=== PATIENT | male | born 2005 | race African-American/Black ===

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

== ENCOUNTER 2024-06-13 07:33 | Emergency (ER) | payer OTHER ==
[2024-06-13 07:54] VITALS: BP 111/82; PULSE 79; RESP 20; TEMP 97.6; BMI 23.8
== END 2024-06-13 08:20 | disposition home or self-care (01) ==
LOC: JER 07:33
DX: K64.8 Other hemorrhoids (principal)
CPT/HCPCS: 36415; 82272; 99283-25